=== PATIENT | male | born 1980 | race Caucasian/White ===

== ENCOUNTER 2016-11-24 20:55 | Emergency (ER) | payer SELFPAY ==
--- NOTE | 2016-11-24 21:08 | ED Physician Documentation ---
Seizure - HISTORIAN Historian: paramedics - [facility] Chief Complaint: Seizure Additional Information: from local nursing home. not witnessed, but EMS arrival "he was shaking all over(not tonic-clonic) " when the EMS raked his finger across his foot, he stopped and looked up. When EMS told him to stop, he stopped and opened his eyes and looked at him. Currently conversational, nor post-ictal. Told RN he quit taking his seizure medicine zia cat made him mad, but joselyn say he's been in nursing home 8 months and has never taken seizure medicine. he says "i have real seizures, because I have nothing to gain by doing this." he says he has had seizures his whole life. has been on dilatin in the past. was recently put on Keppra and Klonipin by an ER, but he really can't remember. He appears to be fabricating some things, he doesn't have specific answers. He has been thru this before to the place where a skip pitman had to get involved with his medical care in the ER following a "seizure" All said he spent 8 hrs in ER with him before, and once skip pitman told him that he would be prosecuted if found out was faking, he immediately asked for AMA papers and went back to nursing home. 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 Timing/Onset/Duration: unknown duration, single episode Last known Well Date: 11/24/16 Last Known Well Time: 21:09 Last known Well Code/Unknown Code: Unknown Witnessed By: denies: family, friend, bystander Preceding Symptoms: none Character of Seizure(s): "shaking all over" Postictal Symptoms: none Location of Injury: none Further Comments: yes - ROS NEURO/PSYCH: denies: headache EYES/ENT: none CVS/RESP: none GI/: denies: nausea MS/SKIN/LYMPH: none - PAST HX Previous seizure/seizure disorder: other (questionable) Etiology: etiology (questionable) Other History: none Surgeries/Procedures: none Allergies/Adverse Reactions: Allergies Allergy/AdvReac Type Severity Reaction Status Date / Time haloperidol [From Haldol] Allergy Verified 11/24/16 21:22 haloperidol lactate Allergy Verified 11/24/16 21:22 [From Haldol] NSAIDS (Non-Steroidal Allergy Verified 11/24/16 21:22 Anti-Inflamma Home Medications: Ambulatory Orders Medication Instructions Recorded Clonazepam [Klonopin] 2 mg PO BID 11/24/16 clonazePAM [Klonopin] 1 mg PO D 11/24/16 levETIRAcetam [Keppra] 1,000 mg PO BID 11/24/16 - SOCIAL HX Smoking History: cigarettes Alcohol Use: occasionally Drug Use: other (hx of intraven) - FAMILY HX Family History: none - VITAL SIGNS Vital Signs: Vital Signs Temp Pulse Resp BP Pulse Ox 100 H 20 135/77 99 11/24/16 20:55 11/24/16 20:55 11/24/16 20:55 11/24/16 20:55 - REVIEWED ASSESSMENTS Nursing Assessment Reviewed: Yes Vitals Reviewed: Yes ED Results Lab/Radiology - Lab Results Lab Results: Lab Results 11/24/16 11/24/16 21:28 21:28 WBC 7.60 K/ul K/ul (4.00-12.00) RBC 4.36 M/ul M/ul (3.90-5.20) Hgb 13.5 g/dL g/dL (12.0-18.0) Hct 40.7 % % (37.0-53.0) MCV 93.2 fl fl (80.0-100.0) MCH 31.0 pg pg (28.0-34.0) MCHC 33.2 g/dL g/dL (30.0-36.0) RDW 12.4 % % (11.3-14.3) Plt Count 315 K/mm3 K/mm3 (130-400) Neut % (Auto) 56.0 % % (39.0-79.0) Lymph % (Auto) 32.7 % % (16.0-50.0) [place] % (Auto) 6.2 % % (0.0-11.0) Eos % (Auto) 2.6 % % (0.0-6.8) Baso % (Auto) 1.1 (0.0-1.5) Neut # (Auto) 4.3 # k/uL # k/uL (1.4-7.7) Lymph # (Auto) 2.5 # k/uL # k/uL (0.6-4.0) [place] # (Auto) 0.5 # k/uL # k/uL (0.0-0.9) Eos # (Auto) 0.2 # k/uL # k/uL (0.0-0.6) Baso # (Auto) 0.1 # k/uL # k/uL (0.0-0.5) Reactive Lymphs % 1.4 % % (0.0-5.0) Reactive Lymphs # 0.1 # k/uL # k/uL (0.0-0.8) Sodium 138 mmol/L mmol/L (136-145) Potassium 4.4 mmol/L mmol/L (3.5-5.0) Chloride 105 mmol/L mmol/L (98-110) Carbon Dioxide 25 mmol/L mmol/L (20-32) BUN < 5 mg/dL L mg/dL (10-26) Creatinine 0.7 mg/dL mg/dL (0.4-1.5) Estimated Creat Clear 152 Est GFR ( Amer) > 60 (60 - ) Est GFR (Non-Af Amer) > 60 (60 - ) Glucose 93 mg/dL mg/dL (70-99) Calcium 9.8 mg/dL mg/dL (8.5-10.5) Total Bilirubin 0.3 mg/dL mg/dL (0.2-1.2) AST 25 U/L U/L (0-41) ALT 14 U/L U/L (0-45) Alkaline Phosphatase 56 U/L U/L (46-116) Total Protein 7.1 g/dL g/dL (6.0-8.5) Albumin 3.9 g/dL g/dL (3.0-5.5) - Radiology Radiology Impressions: CT neg - Orders Orders: ED Orders Category Date Time Status CT BRAIN W/O CONTRAST Stat Exams 11/24/16 Ordered CBC/PLATELET/DIFF Routine Lab 11/24/16 21:28 Completed CMP Routine Lab 11/24/16 21:28 Completed DRUG SCREEN URINE MEDICAL ONLY Routine Lab 11/24/16 Ordered Seizure Physical Exam - Physical Exam General Appearance: no acute distress, alert Altered Mental Status Higher Functions: alert, oriented x3, no evidence of acute CVA, mood/affect nml, eyes open EENT: nml eye inspection, PERRL Neck/Back: normal inspection Respiratory: no resp. distress, breath sounds nml CVS: reg rate & rhythm, heart sounds normal Abdomen: non-tender Skin: warm/dry, normal color Extremities: normal range of motion Observed Seizure Activity in ED: other (shaking all over not seizure activity, told EMS he was faking.) Discharge Clincal Impression: Pseudoseizure Referrals: Primary Doctor,No [Primary Care Provider] - 2 Days Home Medications: Ambulatory Orders Clonazepam [Klonopin] 2 mg PO BID 11/24/16 clonazePAM [Klonopin] 1 mg PO D 11/24/16 levETIRAcetam [Keppra] 1,000 mg PO BID 11/24/16 Condition: Stable Disposition: 01 HOME, SELF-CARE Decision to Admit: NO Date of Decison to Admit: 11/24/16 Decision Time: 22:13
[2016-11-24 21:49] LABS: eGFR (African) > 60; eGFR (Non-African) > 60
[2016-11-24 22:04] LABS: BASOPHILS % 1.1 (0.0-1.5); EOSINOPHILS % 2.6 % (0.0-6.8); MEAN CORPUSCULAR VOLUME 93.2 fl (80.0-100.0); MONOCYTES % 6.2 % (0.0-11.0); NEUTROPHILS # 4.3 # k/uL (1.4-7.7)
[2016-11-24] MEDS ORDERED: methylPREDNISolone SOD SUCC 125 MG/2 ML VIAL IM ONE (22:13)
[2016-11-24] MEDS ORDERED: methylPREDNISolone SOD SUCC 125 MG/2 ML VIAL ONE (22:14)
[2016-11-24 22:48] VITALS: BP 128/80
--- NOTE | 2016-11-25 06:59 | Diagnostic Imaging Report ---
PAUL RUIZ [facility] [id number] [facility] [address] [place], [place]. [address] Report Submission Date: Nov 24, 2016 9:48:14 PM CDT Patient Study Name: TREVOR TONEY Date: Nov 24, 2016 9:36:18 PM CDT Modality Type: CT\SR Gender: M Description: CT BRAIN W/O CONTRAST : 84 Institution: [facility] Physician: PAUL RUIZ CT HEAD WO CONTRAST History: Seizure. Technique: Standard noncontrast CT was performed with contiguous axial images acquired from skull base to vertex. Findings: There is no acute extra-axial fluid collection. Ventricles are of normal size, shape, and morphology. No mass effect or midline shift is present. No evidence of acute hemorrhage. The lombardo-white matter differentiation is normal. The visualized portions of the orbits, and paranasal sinuses, and mastoids are normal. No fractures are identified. Impression: 1. No acute intracranial abnormality. Electronically signed on Nov 24, 2016 9:48:14 PM CDT by: Joel Foster [facility] HOSPITALAshly
[2016-11-27 05:42] LABS: AMPHETAMINE NEGATIVE ng/mL (<1000); BARBITURATES NEGATIVE ng/mL (<300); CANNABINOIDS NEGATIVE ng/mL (< 50); COCAINE NEGATIVE ng/mL (<300); METHAMPHETAMINE NEGATIVE ng/mL (<1000); METHYLENEDIOXYMETHAMPHETAMINE NEGATIVE ng/mL (<500); OPIATES NEGATIVE ng/mL (<300)
== END 2016-11-24 22:26 | disposition home or self-care (01) ==
LOC: ED 20:55
DX: F44.5 Conversion disorder with seizures or convulsions (principal)
CPT/HCPCS: 70450; 80053; 85025; J2930; 96372; 99284; S1016

== ENCOUNTER 2019-03-07 00:27 | Emergency (ER) | payer OTHER ==
--- NOTE | 2019-03-07 00:42 | ED Physician Documentation ---
Seizure - HISTORIAN Historian: patient - HPI Stated Complaint: seizure Chief Complaint: Seizure Timing/Onset/Duration: unknown duration Last known Well Date: 03/07/19 Last Known Well Time: 22:00 Witnessed By: other (alf staff ) Preceding Symptoms: none Character of Seizure(s): "shaking all over". denies: incontinence of urine, incontinence of stool, stopped breathing, lost pulse Postictal Symptoms: none Location of Injury: none Further Comments: yes (per staff he has seizues but was going to the nurse at the alf and was noted to have a seizure in his cell. The nurse notes seizure activity and meds given. Per EMS he is able to stop and communicate during seizure and no symptoms of post seizure. He is instantly alert awake and talkative. No incontience noted. He has no obvious injury. He keeps saying "this is a real seizure" -- " I have not taken any other meds I'm not supposed to" . He says "I am in a low between seizures") - ROS NEURO/PSYCH: denies: headache EYES/ENT: none CVS/RESP: none GI/: denies: adominal pain, nausea, vomiting, diarrhea MS/SKIN/LYMPH: none - PAST HX Previous seizure/seizure disorder: long-standing Etiology: idiopathic Other History: none Surgeries/Procedures: none Immunizations: UTD Allergies/Adverse Reactions: Allergies Allergy/AdvReac Type Severity Reaction Status Date / Time haloperidol [From Haldol] Allergy Verified 03/07/19 01:28 haloperidol lactate Allergy Verified 03/07/19 01:28 [From Haldol] NSAIDS (Non-Steroidal Allergy Verified 03/07/19 01:28 Anti-Inflamma Home Medications: Ambulatory Orders Medication Instructions Recorded Oxcarbazepine [Trileptal] 600 mg PO BID 03/07/19 - SOCIAL HX Smoking History: cigarettes Alcohol Use: none Drug Use: none - FAMILY HX Family History: none - VITAL SIGNS Vital Signs: Vital Signs Temp Pulse Resp BP Pulse Ox 77 18 124/99 98 03/07/19 00:40 03/07/19 00:40 03/07/19 00:40 03/07/19 00:40 - REVIEWED ASSESSMENTS Nursing Assessment Reviewed: Yes Vitals Reviewed: Yes Progress - Progress Progress: 0120: In CT room he is requesting provider due to pain. He states he is in terrible pain at this time although he is not able to state location. DG 0125: He is now resting in room quietly with eyes closed DG 0148: labs and CT normal. Resting quietly now. Follow up call to alf states he was seizing when she approached per nurse Frank report called of normal findings - he has not had a postical phase or incontinence-. Although this is not what was witness at the facility. He will be transferred to another alf per her report DG ED Results Lab/Radiology - Orders Orders: ED Orders Category Date Time Status IV Started NOW Care 03/07/19 00:[address] BRAIN W/O CONTRAST Stat Exams 03/07/19 Completed CBC/PLATELET/DIFF Stat Lab 03/07/19 00:45 Received CMP Stat Lab 03/07/19 00:45 Received Chem Sticks Med 03/07/19 07:30 Ordered 1 each MC CHE[facility] Seizure Physical Exam - Physical Exam General Appearance: no acute distress, alert Altered Mental Status Higher Functions: alert, oriented x3, no evidence of acute CVA, mood/affect nml EENT: nml eye inspection, PERRL Neck/Back: normal inspection Respiratory: no resp. distress, breath sounds nml CVS: reg rate & rhythm, heart sounds normal Abdomen: non-tender Skin: warm/dry, normal color Extremities: normal range of motion Observed Seizure Activity in ED: generalized, awake - Nexus Criteria Neg Nexus Criteria: Nexus criteria neg Discharge Clincal Impression: Pseudoseizure Referrals: Chiki Gil III, MD [Primary Care Provider] - 2 Days Comments: 1. continue with current meds 2. Follow up with PCP for possible neurology referral if seizures progress 3. CT/Labs normal 4. Return to ER for any increased concerns Condition: Stable Disposition: 01 HOME, SELF-CARE Decision to Admit: NO Date of Decison to Admit: 03/07/19 Decision Time: 01:56
--- NOTE | 2019-03-07 01:31 | Diagnostic Imaging Report ---
PATIENT MR#: [id number] PATIENT PATIENT NAME: TREVOR TONEY DATE OF : 1980 REFERRING PHYSICIAN: Millie Wood EXAM DATE: 03/07/2019 ACCESSION NUMBER: [id number] EXAM DESCRIPTION: CT BRAIN W/O CONTRAST EXAMINATION: CT BRAIN W/O CONTRAST 1:23:12 AM User : Ioana Felipe seizures (DICOM Hx) (DICOM Hx) TECHNIQUE: CT of the head was performed without contrast according to standard protocol. COMPARISON: None FINDINGS: No acute intra- or extra-axial fluid collections are identified. The ventricles are of normal size, s hape, and morphology. The basilar cisterns are patent. No mass effect or midline shift is seen. The lombardo-white matter differentiation is normal. The visible portions of the orbits, paranasal sinuses, and mastoids appear normal. No acute fracture is identified. IMPRESSION: 1. No acute intracranial process. Read by: Ernesto Salas Transcribed by: Transcribed Date: Electronically signed by: Ernesto Salas Date signed: 03/07/2019 1:31:10 AM
[2019-03-07 02:21] VITALS: BP 102/59
[2019-03-07 06:43] LABS: BASOPHILS % 1.3 % (0.0-1.5); NEUTROPHILS # 3.7 # k/uL (1.4-7.7); eGFR (Non-African) > 60
== END 2019-03-07 02:12 | disposition home or self-care (01) ==
LOC: ED 00:27
DX: F44.5 Conversion disorder with seizures or convulsions (principal)
CPT/HCPCS: 70450; 80053; 85025; 99283; S1016

== ENCOUNTER 2019-03-10 18:00 | Emergency (ER) | payer OTHER ==
--- NOTE | 2019-03-10 18:09 | ED Physician Documentation ---
Seizure - HISTORIAN Historian: patient - HPI Stated Complaint: Seizure Chief Complaint: Seizure Timing/Onset/Duration: other (started around 430 pm ) Last known Well Date: 03/10/19 Last Known Well Time: 16:30 Last known Well Code/Unknown Code: Unknown Witnessed By: other ([facility] personnel ) Preceding Symptoms: other (he is under more stress ) Character of Seizure(s): "shaking all over". denies: didn't regain between seizure, incontinence of urine, incontinence of stool, stopped breathing, lost pulse Postictal Symptoms: none Location of Injury: none Further Comments: yes (per nursing staff he has started to start having seizures again - he was transferred from another retirement today and he was seizure free- he was told today his daughter and he is not getting out of detention when he thought. They are out of ativan at the detention . He has no loss of control of bodily fluids.) - ROS NEURO/PSYCH: denies: headache, dizziness EYES/ENT: none CVS/RESP: none MS/SKIN/LYMPH: none - PAST HX Previous seizure/seizure disorder: long-standing Etiology: other (unknown ) Surgeries/Procedures: none Immunizations: UTD Allergies/Adverse Reactions: Allergies Allergy/AdvReac Type Severity Reaction Status Date / Time haloperidol [From Haldol] Allergy Verified 03/10/19 18:46 haloperidol lactate Allergy Verified 03/10/19 18:46 [From Haldol] NSAIDS (Non-Steroidal Allergy Verified 03/10/19 18:46 Anti-Inflamma Home Medications: Ambulatory Orders Medication Instructions Recorded Oxcarbazepine [Trileptal] 900 mg PO BID 03/07/19 Lamotrigine [Lamictal] 25 mg PO BID 03/10/19 - SOCIAL HX Smoking History: non-smoker Alcohol Use: none Drug Use: none - FAMILY HX Family History: none - VITAL SIGNS Vital Signs: Vital Signs Temp Pulse Resp BP Pulse Ox 98.4 F 65 15 120/81 96 03/10/19 21:00 03/10/19 21:00 03/10/19 21:00 03/10/19 21:00 03/10/19 21:00 - REVIEWED ASSESSMENTS Nursing Assessment Reviewed: Yes Vitals Reviewed: Yes Progress - Progress Progress: 1939: He is asking for pain medication due to being "sore" from all the seizures. He is awake and alert DG 1999: Discussed case with Dr Butt [facility] and he is going to accept. He is asking no further ativan be administered so he can run proper testing DG ED Results Lab/Radiology - Orders Orders: ED Orders Category Date Time Status IV Started NOW Care 03/10/19 18:15 Active DRUG MONITORING PANEL 8 Routine Lab 03/10/19 18:47 Received LORazepam [Ativan] Med 03/10/19 19:51 Discontinued 1 mg IV NOW ONE LORazepam [Ativan] Med 03/10/19 18:15 Discontinued 2 mg IV NOW ONE LORazepam [Ativan] Med 03/10/19 19:51 Discontinued 2 mg IV NOW ONE Seizure Physical Exam - Physical Exam General Appearance: no acute distress, alert Altered Mental Status Higher Functions: alert, oriented x3, mood/affect nml EENT: nml eye inspection, PERRL Neck/Back: normal inspection Respiratory: no resp. distress, breath sounds nml, no evidence of rib injury CVS: reg rate & rhythm, heart sounds normal Abdomen: non-tender Skin: warm/dry Extremities: normal range of motion, non-tender Observed Seizure Activity in ED: other (his muscles are tense and he does flench or move to command at times. No loss of control of bodily function. HE is awake and talking post seizure activity ) Discharge Clincal Impression: Seizure Referrals: Chiki Gil III, MD [Primary Care Provider] - 2 Days Comments: 1999: Dr Butt accepting Neurologist DG Condition: Fair Disposition: 02 XFER SHT-TRM HOSP Decision to Admit: NO Date of Decison to Admit: 03/10/19 Decision Time: 20:05
[2019-03-10] MEDS ORDERED: LORazepam 2 MG/ML VIAL IV ONE ×3 (18:15→19:51)
[2019-03-10 21:28] VITALS: BP 120/81
== END 2019-03-10 21:12 | disposition short-term general hospital (02) ==
LOC: ED 18:00
DX: R56.9 Unspecified convulsions (principal)
CPT/HCPCS: 80307; 96374; 96376; 99282; 99284; J2060; S1016